=== PATIENT | female | born 1990 | race Caucasian/White ===

== ENCOUNTER 2018-12-17 10:00 | Outpatient (RCR) | payer OTHER, SELFPAY ==
--- NOTE | 2018-11-05 11:56 | HP.PTEVAL_ITS ---
Patient's Visit Information RICK LAMB is a 28 year old F referred to Physical Therapy by Reno Cloud MD with a diagnosis of vertigoBPPV., imbalance, cervicalgia. Date of Evaluation: 11/05/18 Physical Therapist: Tonio iVllar DPT, OC - Visit Plan Frequency: 2x /Week Duration: 4-6 Weeks Plan: 2x/week for: Next visit: check positional and give vestibular saccades and VOR ex for HEP, check neck and formulate treatment for... 2x/week for 4-6 weeks for neck ROM, STM...vestibular progression, balance progression and monitor positional. - Subjective Findings: VNG was OK, Sent to PT in [place]. Has pain in neck. Dizzy for one year insidous onset and double vision for two years(had strabismus surgery in December this year). Had heart tests due to chest pain and L arm pain but that was OK. carotid doppler was OK. Stress echo is OK. Dizzyness is lightheaded adn causes imbalance. Sometimes sitting eating lunch, Doesn't last long. Looking up will make her dizzy and to the right. Unsteady most of the time in between. Needs to wear flat shoes. No falls. Neck pain not bad. Cleared up November to May. then worse, Now mild . Worse with sleeping on L side adn arm up. Comfortable at rest. Folding laundry can hurt. Carrying laundry. x ray was normal of neck. No diagnostics of shoulder. Not working. Is and has 15 month old. Got neck pain 3 months after and L arm pain then also. - Pain L neck and shoulder. Pain Intensity (Out of 10): 0 Pain Intensity Range: 0, 2 Comment: annoying but bearable. - Objective FGA and romberg. C/s AROM: deviates R with ext and 50 degrees, 80 B rotation without pain, full flexion. Posture is FW head and protracted scap. 2/3 bi and tri reflexes. Sensation WNL to gross light touch in UE. Strength in UE is 4-/5 without pain shoulders and elbows and wrists and AROM WFL and painfree. Oculomotor: no nystagmus with gaze. convergence makes her feel wierd. - skew eye dieviation. Pursuit is good but feels dizzy immediately. Saccades is challenging for patient. VOR not bad but feels wierded in head after 20 seconds. - head thrust. - Balance Scores Functional Gait Assessment Score: 26 % Disability: 13.3400 CATSIB Score (Max score 120 seconds): 57 - Goals Goal 1:: abolish vertigo feeling to bend and recover safely at home Goal Time Frame: 4-6 Weeks Goal 2:: Neck pain 0-1 /10 at all times and no deviation with ext. Goal Time Frame: 4-6 Weeks Goal 3:: 30/30 FGA and romberg 120 score to diminish fall risk. Goal Time Frame: 4-6 Weeks Goal 4:: Pt feel 80% better overall in neck, dizzy and balance. Goal Time Frame: 4-6 Weeks - Rehabilitation Potential Physical Therapy Diagnosis: Vertigo and unsteadiness, neck dysfucntion. Rehabilitation Potential: Fair - Anticipated Interventions Patient/Client Instruction: Educate patient on: Condition, Plan of Care For the Purpose of:: To decrease pain, To increase ROM, To increase tolerance to activity/condition/position, To improve balance Therapeutic Exercise to Include: Balance training, Flexibilty training, Gait and locomotor training, Passive ROM, Active ROM Comment: vestibualr ex For the Purpose of:: To increase tolerance to activity/condition/position, To improve gait and locomotor functions, To improve safety with gait Manual Therapy Techniques to Include: Soft tissue mobilization For the Purpose of:: To improve nutrient delivery to tissue Thank you for the opportunity to evaluate your patient. For Medicare and Medicare HMO plans, please review the plan of care and approve it. It will need to be FAXED BACK to us at [phone] for Medicare purposes. For Medicare only, by signing this I certify the plan of care. Please let me know if there are questions or concerns regarding this plan of care. Physician Signature: Date:
--- NOTE | 2018-12-17 10:27 | HP.PTDCSUM ---
HP - PT D/C Summary It has been my pleasure to treat RICK LAMB under orders from Reno Cloud MD, for the diagnosis of vertigoBPPV., imbalance, cervicalgia for a total of 11 visit(s). Discharge Date: 12/17/18 Please see the following information for a summary of their discharge status. - Subjective Subjective: Head nods cause some dizzyness for seconds and sloshing in L ear. Lost hearing in L ear for no apparent reason a few times in last week for a couple seconds. Dizzyness outside of ex has not been great the last couple days. Overall wasn't too bad prior to Friday and worsened for no reason. Pain in neck is no different at 01/31. less nights with numbness waking her up. To doctor in December. No big difference overall. - Pain L neck and shoulder. Pain Intensity (Out of 10): 3 - Overall Improvement % Improvement: 75 - Objective Objective/Function: 62 ext c/s 76 L rotationa dn 86 R Rotation. Tender L pericervical mm. Full UE AROM. Head nods still give quick dizzyness but trasnient . Pt has some unusual symptoms such as loss of hearing and sloshiness in ears that combined with her lack of appropriate progress, make it appropriate for her to check with doctor for other options before continuing PT. - Goals Goal 1:: abolish vertigo feeling to bend and recover safely at home Goal Progress: Not Progressing Goal 2:: Neck pain 0-1 /10 at all times and no deviation with ext. Goal Progress: Not Progressing Goal 3:: 30/30 FGA and romberg 120 score to diminish fall risk. Goal Progress: Goal Met Goal 4:: Pt feel 80% better overall in neck, dizzy and balance. Goal Progress: Progressing - Plan Plan: Pt back to doctor for next step. D/C - D/C Information Discharge Comments: Back to doctor for other options, doing better but progress has plateaud. If there are questions or concerns regarding this patient's physical therapy, please feel free to call me at [phone]. Thank you for the referral of this patient. Sincerely, Tonio Villar, DPT, OCS, CSCS
== END 2018-12-17 19:00 | disposition home or self-care (01) ==
LOC: PT 10:00
PROVIDERS: Family Provider Family Medicine; PCP Family Medicine; Referring Provider Psychiatry & Neurology Neurology; Visit Provider Psychiatry & Neurology Neurology
DX: H81.10 Benign paroxysmal vertigo, unspecified ear (principal); R26.81 Unsteadiness on feet; M54.2 Cervicalgia
CPT/HCPCS: 97110; 97140; 97162; 97530

== ENCOUNTER 2025-10-04 12:45 | Outpatient (RCR) | payer MEDICAID, SELFPAY ==
--- NOTE | 2025-10-04 13:31 | HP.PTEVAL ---
Patient's Visit Information Visit Information Visit Information: RICK LAMB is a 35 year old F referred to Physical Therapy by Dr. Stephen Rodriguez DO with a diagnosis of BPPV. Date of Evaluation: 10/04/25 Physical Therapist: Tonio Villar, TIANAT, OCS, CSCS Visit Plan Frequency: 1x/Week Duration: 2-4 Weeks Plan: weekly as needed for positional(R HD+ today) checks and oculomotor/MSQ as needed. Treated with Lisa chamberlain today and educated on possible beenefits of VOR ex and causes of symptoms. Subjective Subjective: September 05 BPPV came back lying down in bed with nap and felt dizzy and since then lying and rolling has felt dizzy.Lastd a couple minutes. No problem standing. Now noises in ears are echoing and bothersome. 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 No spinning dizzyness sinc shortly after the . Lying to R was the worse. Now more unsteadyness. No falls. Normal activities. Sleeping is OK. Objective Objective: Walks into PT normal with good balance. [employer] chair adn table I. cervical aROM without hesitation sitting and and UE ROM WFL and without weakness. - L HD + R HD possible quick up torsional nystagmus with quick lightheaded feeling. Treated with Lisa chamberlain and instruct. Balance/Special Test Scores Functional Gait Assessment Score: 27 % Disability: 10.0000 Dizziness Score: 24 Goals Goal 1:: 29/30 FGA Goal Time Frame: 2-4 Weeks Goal 2:: Vertigenous symptoms abolished 100% Goal Time Frame: 2-4 Weeks Goal 3:: 28 or less DHI Goal Time Frame: 2-4 Weeks Rehabilitation Potential Physical Therapy Diagnosis: positional vstibular symptoms frustrating patient. Rehabilitation Potential: Good Anticipated Interventions Patient/Client Instruction: Educate patient on: Condition and Plan of Care For the Purpose of:: To increase tolerance to activity/condition/position Comment: posoitional and vestibular ex For the Purpose of:: To increase tolerance to activity/condition/position Text: Thank you for the opportunity to evaluate your patient. For Medicare and Medicare HMO plans, please review the plan of care and approve it. It will need to be FAXED BACK to us at [phone] for Medicare purposes. For Medicare only, by signing this I certify the plan of care. Please let me know if there are questions or concerns regarding this plan of care. Physician Signature: Date:
--- NOTE | 2025-12-16 14:40 | HP.PT.NRP ---
Patient Information Patient Information: RICK LAMB was seen in my office for initial evaluation on 10/04/25. The following Plan of Care was established for this patient: POC Established Initial Frequency: 1x/Week Initial Duration: 2-4 Weeks Anticipated Interventions Patient/Client Instruction: Educate patient on: Condition and Plan of Care For the Purpose of:: To increase tolerance to activity/condition/position For the Purpose of:: To increase tolerance to activity/condition/position Last Seen Last Seen: This patient was last seen in our office 10/04/25. Pertinent comments regarding their Physical therapy will appear below: Sen for IE and POC stablished but did not rturn for any visits. It has bn over two months and I will discontinue due to nonattndance. At this point I will be discontinuing this patient from physical therapy. I would be happy to see this patient again in the future if found appropriate by the physician. Thank you! Tonio Villar, DPT, OCS, CSCS Balance/Gait/Functional tests Balance/Special Test Scores Functional Gait Assessment Score: 27 % Disability: 10.0000 Dizziness Score: 24
== END 2025-10-04 19:00 | disposition home or self-care (01) ==
LOC: PT 12:45
PROVIDERS: PCP Family Medicine; Visit Provider Student in an Organized Health Care Education/Training Program
DX: R42 Dizziness and giddiness (principal)
CPT/HCPCS: 97161